=== PATIENT | male | born 1965 | race Caucasian/White ===

== ENCOUNTER 2019-08-22 11:16 | Day surgery (SDC) | payer OTHER ==
[2019-08-22] MEDS ORDERED: Lidocaine 1% INJ* 10 MG/ML 30 ML SDV ONE (11:49)
[2019-08-22] MEDS ORDERED: Bupivacaine 0.5% SDV PF* 30ML VIAL ONE (11:50)
[2019-08-22 12:37] VITALS: BP 145/97
--- NOTE | 2019-08-23 00:11 | OP ---
DATE OF OPERATION: 08/22/19 [facility] DATE OF : 63 SURGEON: Sheryl Sarkar MD ([place]) [employer] ASSEMBLER: SUSIE Camacho ANESTHESIA: Local. PRE-OP DIAGNOSIS: Two masses on the right index finger. POST-OP DIAGNOSIS: Two masses on the right index finger. OPERATIVE PROCEDURE: Removal of two masses right index finger. ESTIMATED BLOOD LOSS: Zero. TOURNIQUET TIME: Twenty minutes with a Tourni-Cot. INDICATIONS: Sal is a 54-year-old male who has a painful mass on the dorsal aspect of his right index finger PIP joint and a second in the area of an old puncture wound on the volar aspect. He has a palpable mass on the pad of his finger which is bothersome. He presents for removal of both masses. DESCRIPTION OF PROCEDURE: The patient was brought to the operating room, was given a local anesthetic with 10 cc of 1% plain lidocaine as a digital block to the right index finger. Skin of his right upper extremity was prepped and draped in the usual sterile fashion. The finger was exsanguinated with a Tourni -Cot, which was left in place during the procedure. A longitudinal incision was made over the dorsal aspect of the PIP joint, dissected through the subcutaneous tissue down to a ganglion cyst which was emanating from the PIP joint from underneath the extensor tendon. It was removed with a small portion of the PIP joint capsule, which was then cauterized with the Bovie. The wound was irrigated and the skin edges were reapproximated with 4-0 nylon suture. An ellipse of skin was removed from the pad of the finger around the old puncture site and was removed with a slight amount of subcutaneous tissue. The wound was explored and no foreign body was found. The wound was irrigated and skin edges reapproximated with 4-0 nylon sutures. The wounds were dressed with Xeroform, 4x4, Kerlix, and Coban. The patient tolerated the procedure well and was brought to the recovery room in good condition. [id number]/[facility] #: [id number] [facility]
== END 2019-08-22 12:45 | disposition home or self-care (01) ==
LOC: OREAST 11:16
PROVIDERS: ATTEND Orthopaedic Surgery
DX: M67.441 Ganglion, right hand (principal); B07.8 Other viral warts
CPT/HCPCS: 88304; J3490